=== PATIENT | female | born 1940 | race Caucasian/White ===

== ENCOUNTER → 2016-11-19 | Outpatient (CLI) | payer MEDICARE, MEDICAID ==
[~2016-11-19] MED LIST: COZAAR100 MG PO; GOOD SENSE ASPI81 M1 PO; LEVOTHYROXINE0.05 MG PO
== END ==
LOC: LAB 11:15
DX: Z00.00 Encounter for general adult medical examination without abnormal findings (principal); I10 Essential (primary) hypertension; E03.1 Congenital hypothyroidism without goiter; H61.22 Impacted cerumen, left ear

== ENCOUNTER → 2017-11-13 | Outpatient (CLI) | payer MEDICARE, MEDICAID ==
[2014-09-15 16:26] VITALS: BP 154/83
[2017-11-13 10:49] LABS: ALBUMIN 3.8 g/dL (3.5-5.0); BUN/CREATININE RATIO 23.6 (6.0-26.0); CALCIUM 9.4 mg/dL (8.4-10.2); POTASSIUM 4.2 mmol/L (3.6-5.0); TOTAL BILIRUBIN 1.2 mg/dL (0.2-1.3)
== END ==
LOC: LAB 10:26
PROVIDERS: Family Medicine
DX: Z00.00 Encounter for general adult medical examination without abnormal findings (principal); E03.9 Hypothyroidism, unspecified; I10 Essential (primary) hypertension; H61.22 Impacted cerumen, left ear; Z13.6 Encounter for screening for cardiovascular disorders

== ENCOUNTER → 2018-11-17 | Outpatient (CLI) | payer MEDICARE, MEDICAID ==
[2014-09-15 16:26] VITALS: BP 154/83
[2018-11-17 10:43] LABS: ALBUMIN 3.8 g/dL (3.5-5.0); CALCIUM 9.3 mg/dL (8.4-10.2); POTASSIUM 3.9 mmol/L (3.6-5.0); TOTAL BILIRUBIN 1.7 mg/dL (0.2-1.3); TOTAL PROTEIN 6.6 g/dL (6.3-8.2)
== END ==
LOC: LAB 09:58
PROVIDERS: Family Medicine
DX: Z00.00 Encounter for general adult medical examination without abnormal findings (principal); I10 Essential (primary) hypertension; E03.9 Hypothyroidism, unspecified; H61.20 Impacted cerumen, unspecified ear

== ENCOUNTER → 2020-01-04 | Outpatient (CLI) | payer MEDICARE, MEDICAID ==
[2014-09-15 16:26] VITALS: BP 154/83
[2020-01-04 09:40] LABS: ALBUMIN 3.7 g/dL (3.4-4.8); POTASSIUM 4.1 mmol/L (3.5-5.1)
[2020-01-04 09:41] LABS: CALCIUM 9.3 mg/dL (8.3-10.5)
[2020-01-04 09:42] LABS: TOTAL PROTEIN 6.4 g/dL (6.2-8.1)
[2020-01-04 09:44] LABS: TOTAL BILIRUBIN 1.5 mg/dL (0.2-1.2)
[2020-01-04 10:16] LABS: HEMATOCRIT 45.8 % (37.0-47.0); HEMOGLOBIN 14.8 g/dL (12.5-16.0); MEAN PLATELET VOLUME 10.9 fl (7.4-10.4); RED BLOOD COUNT 5.17 M/mm3 (4.10-5.30); RED CELL DISTRIBUTION WIDTH 13.9 % (11.5-14.5); WHITE BLOOD COUNT 7.4 K/mm3 (4.8-10.8)
== END ==
LOC: LAB 09:09
PROVIDERS: Family Medicine
DX: Z00.00 Encounter for general adult medical examination without abnormal findings (principal); Z13.6 Encounter for screening for cardiovascular disorders; I10 Essential (primary) hypertension; E03.9 Hypothyroidism, unspecified; K59.01 Slow transit constipation; H61.22 Impacted cerumen, left ear

== ENCOUNTER → 2021-01-31 | Outpatient (CLI) | payer MEDICARE, MEDICAID ==
[2014-09-15 16:26] VITALS: BP 154/83
[2021-01-31 09:09] LABS: ALBUMIN 3.5 g/dL (3.4-4.8)
[2021-01-31 09:10] LABS: POTASSIUM 4.3 mmol/L (3.5-5.1)
[2021-01-31 09:11] LABS: CALCIUM 9.1 mg/dL (8.3-10.5)
[2021-01-31 09:12] LABS: TOTAL PROTEIN 6.2 g/dL (6.2-8.1)
[2021-01-31 09:14] LABS: TOTAL BILIRUBIN 1.3 mg/dL (0.2-1.2)
== END ==
LOC: LAB 07:21
PROVIDERS: Family Medicine
DX: I10 Essential (primary) hypertension (principal); E03.9 Hypothyroidism, unspecified

== ENCOUNTER → 2022-02-08 | Outpatient (CLI) | payer MEDICARE, MEDICAID ==
[2022-02-08 08:28] LABS: ALBUMIN 3.8 g/dL (3.4-4.8); POTASSIUM 4.2 mmol/L (3.5-5.1)
[2022-02-08 08:29] LABS: CALCIUM 9.4 mg/dL (8.3-10.5)
[2022-02-08 08:30] LABS: TOTAL PROTEIN 6.6 g/dL (6.2-8.1)
[2022-02-08 08:32] LABS: TOTAL BILIRUBIN 1.6 mg/dL (0.2-1.2)
== END ==
LOC: LAB 07:48
PROVIDERS: Family Medicine
DX: I10 Essential (primary) hypertension (principal); E03.9 Hypothyroidism, unspecified

== ENCOUNTER → 2022-12-03 | Outpatient (CLI) | payer MEDICARE, MEDICAID ==
[2022-12-03 16:35] LABS: HEMATOCRIT 46.1 % (37.0-47.0); HEMOGLOBIN 15.4 g/dL (12.5-16.0); MEAN PLATELET VOLUME 9.8 fl (7.4-10.4); RED BLOOD COUNT 5.19 M/mm3 (4.10-5.30); WHITE BLOOD COUNT 9.8 K/mm3 (4.8-10.8)
== END ==
LOC: LAB 16:17
PROVIDERS: Family Medicine
DX: R31.0 Gross hematuria (principal); R42 Dizziness and giddiness

== ENCOUNTER → 2022-12-07 | Outpatient (CLI) | payer MEDICARE, MEDICAID | LOC: RAD 10:19 | DX: K80.20 Calculus of gallbladder without cholecystitis without obstruction (principal); M48.061 Spinal stenosis, lumbar region without neurogenic claudication; M47.816 Spondylosis without myelopathy or radiculopathy, lumbar region; M43.16 Spondylolisthesis, lumbar region; R31.9 Hematuria, unspecified | CPT/HCPCS: Q9967 ==

== ENCOUNTER → 2022-12-21 | Outpatient (CLI) | payer MEDICARE, MEDICAID | LOC: RAD 11:34 | DX: Z01.818 Encounter for other preprocedural examination (principal) ==